=== PATIENT | female | born 1980 | race Caucasian/White ===

== ENCOUNTER 2019-11-07 21:10 | Observation (INO) ==
--- NOTE | 2019-11-07 21:55 | PROVIDER DOCUMENTATION ---
[id number] Abuse/Overdose - General Chief Complaint: Overdose Stated Complaint: overdose Time Seen by Provider: 11/07/19 21:22 Source: patient, EMS Allergies/Adverse Reactions: Allergies Allergy/AdvReac Type Severity Reaction Status Date / Time ketorolac tromethamine * Allergy Unknown Verified 11/07/19 22:15 [From Toradol] sulfamethoxazole Allergy Unknown Verified 11/07/19 22:15 [From Bactrim] trimethoprim [From Bactrim] Allergy Unknown Verified 11/07/19 22:15 Home Medications: Home Medication List Medication Instructions Recorded Confirmed Last Taken Type NK [No Home Medications] 11/07/19 11/07/19 Unknown History - History of Present Illness-Drug/Alcohol Nature of Presenting Problem: [id number] presents to the ER via cross country [place] for unintentional overdose of an unknown substance that the patient snorted just [employer]. EMS reports that on arrival to scene the patient boyfriend was giving CRP, Narcan IM was given and pulse returned. The patient was still not breathing at this time and required rescue breaths. While enroute, the patient became more alert, began breathing on her own, vital signs stabilized. On arrival to the hospital, the patient is drowsy but answers questions appropriately and follows commands. She c/o of sternal pain and nausea. She reports that she is an active meth user and snorts routinely but is unsure what she was given tonight. This episode of drinking or use began:: just prior to arrival - Substance Abuse Substance Use: reports: amphetamines - Overdose Intentional drug overdose?: No How did the ingestion/other suicidal act come to attention?: snorted Review of Systems - Adult - REVIEW OF SYSTEMS - ADULT Constitutional: reports: see HPI Eyes: reports: no symptoms reported Ears, Nose, Mouth & Throat: reports: no symptoms reported Cardiovascular: reports: no symptoms reported. denies: chest pain, palpitations Respiratory: reports: no symptoms reported. denies: cough, wheezing Gastrointestinal: reports: no symptoms reported Genitourinary: reports: no symptoms reported Musculoskeletal: reports: no symptoms reported Integumentary: reports: no symptoms reported Neurological: reports: no symptoms reported Psychiatric: reports: see HPI, alcohol/drug dependence Endocrine: reports: no symptoms reported Hematologic/Lymphatic: reports: no symptoms reported Allergic/Immunologic: reports: no symptoms reported All Other Systems: Reviewed and Negative Past History - Adult - PAST MEDICAL HISTORY-ADULT Review of Records: reports: Old Records Reviewed, Nursing Assessment Review, Medications Reviewed, Social history reviewed & non-contributory. Major Childhood Illnesses: reports: denies history Cardiovascular: reports: denies history Respiratory: reports: denies history Gastrointestinal: reports: denies history Obstetrical/Gynecological: reports: fibroids, ovarian cysts Genitourinary: reports: denies history Musculoskeletal: reports: denies history Neurological: reports: denies history Psychiatric: reports: anxiety, depression Endocrine/Immune: reports: denies history Other Conditions: reports: MRSA (hx) - PRIOR SURGERIES/PROCEDURES Surgical/Procedure History: reports: other (uterine fibroid removed) - IMMUNIZATION STATUS Childhood Immunizations: See Nurse Assessment Flu Vaccine: See Nurse Assessment - FAMILY HISTORY Family History: reviewed, not pertinent - SOCIAL HISTORY Smoking: cigarettes, greater than 1 pack/day Provider spent 3-5 mins advising pt. on dangers of tobacco.: Discussed manners to quit use, and f/u contacts for add'l counseling. Substance Use: alcohol, amphetamines Living Situation: family Physical Exam-General - PHYSICAL EXAM-ADULT Initial Vital Signs Reviewed: Yes - CONSTITUTIONAL General Appearance: alert, no apparent distress - EYES Eyes: PERRL/EOMI, pink conjunctivae - HEAD, EARS, NOSE, MOUTH & THROAT HENMT: normocephalic/atraumatic, moist mucous membranes, TMs normal - NECK Neck: full range of motion, supple - RESPIRATORY Respiratory: lungs clear, normal breath sounds - CARDIOVASCULAR Cardiovascular: regular rate, rhythm, no edema, no gallop, no murmur, other ( sternal tenderness) - GASTROINTESTINAL (ABDOMEN) Abdominal Exam: non tender, soft - MUSCULOSKELETAL Extremity: normal range of motion, non-tender, normal gait - SKIN Integumentary: normal color, warm/dry - PSYCHIATRIC Psych/Mental Status: oriented x 3, other (drowsy) Progress - PLAN OF CARE/RESULTS Progress/Plan/Lab Results: Vital Signs - 8 hr 11/07/19 21:44 Temperature 97.4 F L Pulse Rate 76 Respiratory Rate 18 Blood Pressure 145/91 O2 Sat by Pulse Oximetry 97 Laboratory Results - last 24 hr 11/07/19 11/07/19 11/07/19 22:41 22:41 22:41 WBC RBC Hgb Hct MCV MCH MCHC RDW Std Deviation Plt Count MPV Immature Gran % (Auto) Neut % (Auto) Lymph % (Auto) Williams % (Auto) Eos % (Auto) Baso % (Auto) Immature Gran # (Auto) Neut # (Auto) Lymph # (Auto) Williams # (Auto) Eos # (Auto) Baso # (Auto) Sodium 142 Potassium 3.9 Chloride 102 Carbon Dioxide 23 L Anion Gap 17 BUN 20 Creatinine 0.8 Estimated GFR/1.73 m2 > 60 BUN/Creatinine Ratio 25 Glucose 74 Calculated Osmolality 284 Calcium 10.0 Phosphorus 4.5 Magnesium 2.3 Total Bilirubin 0.39 AST 86 H ALT 99 H Alkaline Phosphatase 100 Creatine Kinase 206 H Troponin T High Sens 7 Total Protein 8.7 H Albumin 5.0 Globulin 3.7 Albumin/Globulin Ratio 1.4 Urine Source Urine Color Urine Turbidity Urine pH Ur Specific [place] Urine Protein Ur Glucose (Stick) Ur Ketones (Stick) Urine Blood Urine Nitrite Urine Bilirubin Urobilinogen Dipstick Urine Leukocytes Urine WBC (Auto) Urine RBC (Auto) U Epithel Cells (Auto) Urine Bacteria (Auto) Urine Opiates Screen Ur Oxycodone Screen Ur Methadone, Qual Ur Barbiturates Screen Ur Phencyclidine Scrn Ur Amphetamines Screen U Benzodiazepines Scrn Urine Cocaine Screen U Cannabinoids Screen 11/07/19 11/07/19 11/07/19 22:41 22:45 22:45 WBC 12.26 H RBC 5.52 H Hgb 16.1 H Hct 50.2 H MCV 90.9 MCH 29.2 MCHC 32.1 L RDW Std Deviation 13.0 Plt Count 177 MPV 10.8 H Immature Gran % (Auto) 0.9 H Neut % (Auto) 77.8 H Lymph % (Auto) 14.2 L Williams % (Auto) 4.6 Eos % (Auto) 2.0 Baso % (Auto) 0.5 Immature Gran # (Auto) 0.11 H Neut # (Auto) 9.54 H Lymph # (Auto) 1.74 Williams # (Auto) 0.57 Eos # (Auto) 0.24 Baso # (Auto) 0.06 Sodium Potassium Chloride Carbon Dioxide Anion Gap BUN Creatinine Estimated GFR/1.73 m2 BUN/Creatinine Ratio Glucose Calculated Osmolality Calcium Phosphorus Magnesium Total Bilirubin AST ALT Alkaline Phosphatase Creatine Kinase Troponin T High Sens Total Protein Albumin Globulin Albumin/Globulin Ratio Urine Source CLEAN CATCH Urine Color YELLOW Urine Turbidity HAZY Urine pH 6.0 Ur Specific [place] 1.026 Urine Protein 30 A Ur Glucose (Stick) NEGATIVE Ur Ketones (Stick) TRACE A Urine Blood NEGATIVE Urine Nitrite POSITIVE A Urine Bilirubin NEGATIVE Urobilinogen Dipstick NORMAL Urine Leukocytes LARGE A Urine WBC (Auto) TNTC A Urine RBC (Auto) <10 U Epithel Cells (Auto) <10 Urine Bacteria (Auto) 4+ Urine Opiates Screen PRESUMPTIVE POSITIVE A Ur Oxycodone Screen NONE DETECTED Ur Methadone, Qual NONE DETECTED Ur Barbiturates Screen NONE DETECTED Ur Phencyclidine Scrn NONE DETECTED Ur Amphetamines Screen PRESUMPTIVE POSITIVE A U Benzodiazepines Scrn NONE DETECTED Urine Cocaine Screen NONE DETECTED U Cannabinoids Screen PRESUMPTIVE POSITIVE A Orders Category Date Time Status Nursing- Obtain EKG ONCE Care 11/07/19 21:37 Active CHEST-PORTABLE [RAD] Stat Exams 11/07/19 21:52 Taken CBC WITH ELECTRONIC DIFF [HEME] Stat Lab 11/07/19 22:41 Completed CK PROFILE [SP CHEM] Stat Lab 11/07/19 22:41 Results COMPREHENSIVE METABOLIC PANEL [CHEM] Stat Lab 11/07/19 22:41 Completed MAGNESIUM [CHEM] Stat Lab 11/07/19 22:41 Completed PHOSPHORUS [CHEM] Stat Lab 11/07/19 22:41 Completed TROPONIN T HIGH SENSITIVITY Stat Lab 11/07/19 22:41 Completed UA NIMS W/REFLEX CULT [URINALYSIS] Stat Lab 11/07/19 22:45 Completed URINE DRUG SCREEN Stat Lab 11/07/19 22:45 Completed 0.9% Sodium Chloride Inj [Ns] 1,000 ml Med 11/07/19 23:41 Active IV 125 mls/hr CefTRIAXONE [Rocephin] 1 gm Med 11/07/19 23:42 Active 0.9% Sodium Chloride Inj [Ns] 50 ml IV NOW EKG [EKG] Stat Ther 11/07/19 21:37 Ordered Result Diagrams: 11/07/19 22:41 11/07/19 22:41 - EKG 1 Time of EKG reading by physician:: 21:42 EKG Read and Signed by:: Latrell Quan EKG Interpretation (*Must complete 3 of following elements*): Normal Rate: 80 Rhythm: NSR Walker: normal QRS: normal MD Interval: normal ST Wave: normal - XRAY 1 XRAY Study: Chest Impression: Normal (Normal heart and mediastinal contours No focal consolidation No pleural effusion No displaced fracture No acute cardiopulmonary abnormality) - CONSULTS/PCP/HOSPITALIST Notification #1 *Consult/PCP/Hospitalist*: Dr Forman Time Discussed: 23:46 Reason/Comments: Cardiac arrest, Overdose Consult Disposition: Admit Departure - Departure Date of Disposition Decision: 11/07/19 Time of Disposition Decision: 23:47 DIAGNOSIS: Cardiac arrest, UTI (urinary tract infection) Overdose Qualifiers: Encounter type: initial encounter Injury intent: accidental or unintentional Qualified Code(s): T50.901A - Poisoning by unspecified drugs, medicaments and b iological substances, accidental (unintentional), initial encounter Disposition: ADMITTED INPATIENT 09 Certified Medical Emergency: Emergent Condition: Critical Additional Instructions: ED Follow Up Instructions: You have been treated by a care provider in the Emergency Department. These instructions are being provided to you so you can have an understanding of how to care for yourself upon discharge. Upon discharge from the Emergency Department, you are responsible for making arrangements for follow-up care by a physician of your choice. Take all prescribed medications as directed. Return to the Emergency Department immediately for any new or worsening symptoms. You may call the Physician Referral phone number at [phone] to obtain a list of Physicians who are taking new patients. Referrals and Follow-Ups: None,PCP [Primary Care Provider] - - Critical Care Note This patient required my direct & personal management of CC.: No Attestation - Physician/ HARRY Attestation Patient care was provided by Advanced Practice Provider:: Yes Advanced Practice Provider:: Juan Manuel Feldman Advanced Practice Provider documentation review:: The Mid-level provider documentation, treatment plan and medical decision making was reviewed by the physician who agrees with all treatment and medical decision making by the P. The physician spent face to face time with patient:: No Advanced Practice Provider documentation review:: Supervising physician onsite and consulted in the evaluation and care of this patient. The physician did not have a face to face encounter with the patient.
[2019-11-07 22:59] LABS: BASO# 0.06 X1000 (0.0-0.2); BASO% 0.5 % (0.0-0.8); EOS# 0.24 X1000 (0.0-0.7); HEMATOCRIT 50.2 % (37.0-47.0); HEMOGLOBIN 16.1 g/dL (12.0-16.0); IMM GRAN# 0.11 X1000 (0.0-0.04); IMM GRAN% 0.9 % (0.0-0.5); LYMPH# 1.74 X1000 (1.2-3.4); LYMPH% 14.2 % (20.5-51.1); MCH 29.2 PG (27-31); MCHC 32.1 g/dL (33-37); MCV 90.9 FL (81-99); MONO# 0.57 X1000 (0.11-0.59); MONO% 4.6 % (1.7-9.3); MPV 10.8 FL (7.4-10.4); NEUT# 9.54 X1000 (1.4-6.5); NEUT% 77.8 % (42.2-75.2); PLT 177 X1000 (130-400); RBC 5.52 XMIL (4.2-5.4); WBC 12.26 X1000 (4.8-10.8)
[2019-11-07 23:03] LABS: URINE SOURCE CLEAN CATCH
[2019-11-07 23:27] LABS: UR AMPHETAMINES QUAL PRESUMPTIVE POSITIVE (NONE DETECT); UR BARBITUATES QUAL NONE DETECTED (NONE DETECT); UR BENZODIAZEPIN QUAL NONE DETECTED (NONE DETECT); UR CANNABINOIDS QUAL PRESUMPTIVE POSITIVE (NONE DETECT); UR COCAINE QUAL NONE DETECTED (NONE DETECT); UR METHADONE QUAL NONE DETECTED (NONE DETECT); UR OPIATES QUAL PRESUMPTIVE POSITIVE (NONE DETECT); UR OXYCODONE QUAL NONE DETECTED (NONE DETECT); UR PCP QUAL NONE DETECTED (NONE DETECT)
[2019-11-07 23:29] LABS: AGAP 17; ALB/GLOB RATIO 1.4; ALKALINE PHOSPHATASE 100 U/L (32-104); BUN 20 mg/dL (8-22); CHLORIDE 102 mmol/L (98-107); COSMO 284; CREATININE 0.8 mg/dL (0.5-0.9); ESTIMATED GFR > 60; GLUCOSE 74 mg/dL (70-104); GOT 86 U/L (10-30); GPT 99 U/L (10-36); MAGNESIUM 2.3 mg/dL (1.5-2.7); PHOSPHORUS 4.5 mg/dL (2.7-4.5); POTASSIUM 3.9 mmol/L (3.5-5.1); SODIUM 142 mmol/L (136-145); TCO2 23 mmol/L (25-35); TOTAL BILIRUBIN 0.39 mg/dL (0.20-1.00); TOTAL PROTEIN 8.7 g/dL (6.3-8.3)
[2019-11-07 23:31] LABS: BILIRUBIN URINE NEGATIVE (NEGATIVE); BLOOD URINE NEGATIVE (NEGATIVE); COLOR YELLOW; GLUCOSE URINE NEGATIVE (NEGATIVE); KETONE URINE TRACE mg/dL (NEGATIVE); LEUKOCYTES URINE LARGE (NEGATIVE); NITRITE URINE POSITIVE (NEGATIVE); PROTEIN URINE 30 mg/dL (NEGATIVE); SP GRAVITY URINE 1.026; TURBIDITY URINE HAZY (CLEAR); UROBILINOGEN URINE NORMAL (NORMAL)
[2019-11-07 23:33] LABS: UR EPITHELIAL CELLS <10 /HPF (<10); URINE BACTERIA 4+ /HPF; URINE RBC <10 /HPF (<10); URINE WBC TNTC /HPF (<10)
[2019-11-07] MEDS ORDERED: NS 1,000 ML IV ONE (23:41)
[2019-11-07] MEDS ORDERED: ROCEPHIN 1 GM in NS 50 ML IV ONE (23:42)
[2019-11-08 00:09] LABS: CK INDEX 2.1 (0.0-2.5); CK-MB 4.33 ng/mL (0.0-5.0)
--- NOTE | 2019-11-08 00:51 | HISTORY AND PHYSICAL ---
CHIEF COMPLAINT: The patient unresponsive after unintentional overdose. HISTORY OF PRESENT ILLNESS: The patient is a 39-year-old female with no past medical history, aside from illicit drug use. Her and her significant other were snorting what they thought was methamphetamine, which is her drug of choice, but turned out to be something else, likely heroin. Subsequently, she became unresponsive. Her significant other that she essentially stopped breathing and turned blue, but still had a pulse. He began CPR and he called the prison psychiatrist. When they got there, the patient did have a pulse. They administered Narcan with immediate improvement in her respiratory and mental status. On arrival here, the patient was a little sleepy and somnolent but awake and alert. She required no further Narcan. The patient complains only of nausea and a little bit of chest discomfort where her significant other did CPR. Both the patient and her significant other deny any intention of self-harm or suicidal ideation. She denies dyspnea, fever, chills, cough. She denies IV drug use. REVIEW OF SYSTEMS: Twelve-point review of systems negative except as per interval history. ALLERGIES: No known drug allergies. PAST MEDICAL HISTORY: Paroxysmal atrial fibrillation. PAST SURGICAL HISTORY: Benign genitourinary tumor removal. FAMILY HISTORY: Both parents alive and in good health, to the best of the patient's knowledge. SOCIAL HISTORY: The patient snorts methamphetamine and smokes marijuana. Denies tobacco or alcohol use. LABS: WBC 12.2, hemoglobin 16.1, hematocrit 50.2, platelets 177,000. Sodium 142, potassium 3.9, BUN 20, creatinine 0.8. Glucose 74, bilirubin 0.39, AST 86, ALT 99, troponin 7. Urinalysis with large leukocytes, too numerous to count white cells, negative epithelial cells, 4+ bacteria, positive nitrites. UDS positive for opiates, amphetamines and cannabinoids. IMAGING: Chest x-ray, no acute process. PHYSICAL EXAMINATION: VITAL SIGNS: Temperature 97.4 degrees, pulse 76, respirations 18, blood pressure 145/91, O2 saturation 97% on room air. GENERAL: No acute distress. HEENT: Normocephalic, atraumatic. Slightly dry mucous membranes. CARDIOVASCULAR: Regular rate and rhythm. No murmurs noted. PULMONARY: Clear to auscultation bilaterally. No wheezing, rales, or rhonchi. ABDOMEN: Soft, nontender, nondistended. Bowel sounds positive. EXTREMITIES: Peripheral pulses intact. No clubbing, cyanosis. Fingers stained. NEUROLOGIC: Cranial nerves grossly intact. No focal deficits. Identified. PSYCHIATRIC: Patient awake, responses slightly slow but appropriate. Oriented x3. Cooperative. ASSESSMENT AND PLAN: 1. Unintentional overdose. Patient thought she was snorting methamphetamine but was actually taking likely some kind of opiate, suspect heroin, had what sounds like a respiratory arrest in the field. Her significant other did CPR and then she recovered after Narcan administration by EMT. She has not required any further Narcan but the ER has asked us to watch her overnight to make sure she does not require any further Narcan. 2. Likely mild dehydration. The patient's lab suggests she is likely mildly hemoconcentrated. We will give her some gentle fluids overnight. 3. Possible urinary tract infection. Patient with some minimal urinary symptoms. Urinalysis suggestive urinary tract infection. Given Rocephin in the ED. We will give her some 3 to 5 days of Keflex. 4. Elevated liver function tests. Bilirubin normal. AST and ALT minimally elevated. May have been a reaction to her respiratory arrest. We will recheck them in the morning, if they are further up, we will consider sending hepatitis panel. 5. Paroxysmal atrial fibrillation. The patient has been normal sinus rhythm here but will monitor. 6. Disposition: If the patient has no further adverse events, then we will likely be able to discharge home tomorrow.
[2019-11-08] MEDS ORDERED: ZOFRAN IV PRN (01:20)
[2019-11-08] MEDS ORDERED: TYLENOL PO PRN (01:20)
--- NOTE | 2019-11-08 05:01 | EKG Report ---
Test Performed on : 11/07/2019 9:42:05 PM Test Reason : cp Blood Pressure : / mmHG Vent. Rate : 080 BPM Atrial Rate : 080 BPM P-R Int : 150 ms QRS Dur : 078 ms QT Int : 390 ms P-R-T Axes : 076 058 040 degrees QTc Int : 449 ms Normal sinus rhythm. Normal ECG No previous ECGs available Unconfirmed Result
--- NOTE | 2019-11-08 07:09 | Diag Imaging Result Doc PS360 ---
EXAM: CHEST-PORTABLE 11/07/2019 HISTORY: protocol TECHNIQUE: AP portable at 2209 COMMENT: The lungs are clear and the heart and primary vascularity are within normal limits. IMPRESSION: Normal chest. Electronically signed by Wiley Disla 11/08/2019 7:07 AM
[2019-11-08 07:41] VITALS: BP 109/64
--- NOTE | 2019-11-08 08:55 | DISCHARGE SUMMARY ---
ADMISSION DATE: 11/07/2019 DISCHARGE DATE: 11/08/2019 HISTORY OF PRESENT ILLNESS: The patient was found unresponsive. She has no primary care physician. A 39-year-old female. Past medical history insignificant except for illicit drug use. Her and her significant were snorting and they thought it was methamphetamine, which is their drug of choice, but it turned out to be something else, likely heroin. Subsequently, she became unresponsive. Her significant other brought her in and claimed she stopped breathing, turned blue but still had a pulse. They began CPR and called EMT. When they got there, the patient did have a pulse. Administered Narcan, immediately improved in her respiratory and mental status. The patient was a little sleepy and somnolent. Brought in and put into the hospital. HOSPITAL COURSE: Remained hemodynamically stable. No complaints. Feels much better and was insisting on going home the following morning. Was given some IV fluids. She had elevated transaminases and bilirubin was normal. She had some paroxysmal atrial fibrillation but has been in normal sinus rhythm throughout the night. Once again, very insistent on going home. Her home medications, nothing, so I will discharge her home. Encouraged her primary care. She is positive for amphetamines, positive for cannabinoids, and positive for opiates. There was no suicidal attempt. Denies any suicidal thoughts. cc: Aydin Gallegos MD
[2019-11-08] MEDS ORDERED: KEFLEX PO SCH (21:00)
== END 2019-11-08 13:26 | disposition home or self-care (01) ==
LOC: ED 21:10 → SUATTDRO 11-08 02:17 → INTOOBSV 11-08 02:17 → 3N 11-08 02:17
PROVIDERS: ATTEND Emergency Medicine